=== PATIENT | female | born 1975 | race Caucasian/White ===

== ENCOUNTER 2018-03-29 07:55 | Day surgery (SDC) | payer MEDICAID ==
[2018-03-26 11:49] LABS: BASOPHILS % (AUTO) 0.6 % (0-1); EOSINOPHILS # (AUTO) 0.3 X10'3 (0-0.9); EOSINOPHILS % (AUTO) 4.8 % (0-6); LYMPHOCYTES # (AUTO) 1.2 X10'3 (1.1-4.8); LYMPHOCYTES % (AUTO) 17.4 % (21-51); MEAN CORPUSCULAR HEMOGLOBIN 24.9 PG (27.0-31.0); MEAN CORPUSCULAR HGB CONC 32.5 % (33.0-36.5); MEAN CORPUSCULAR VOLUME 76.7 FL (78-98); MEAN PLATELET VOLUME 7.7 FL (7.4-10.4); MONOCYTES # (AUTO) 0.5 X10'3 (0-0.9); MONOCYTES % (AUTO) 7.8 % (2-12); NEUTROPHILS # (AUTO) 4.9 X10'3 (1.8-7.7); NEUTROPHILS % (AUTO) 69.4 % (42-75); PRE OP HEMATOCRIT 34.4 % (35.0-45.0); PRE OP HEMOGLOBIN 11.2 g/dL (12.0-16.0); PRE OP PLATELET COUNT 357 X10'3 (140-440); RED BLOOD COUNT 4.48 X10'6 (4.20-5.60); RED CELL DISTRIBUTION WIDTH 17.3 % (11.5-14.5)
[2018-03-26 12:03] LABS: ALBUMIN 3.2 G/DL (3.4-5.0); ALBUMIN/GLOBULIN RATIO 0.8 (1.1-1.5); ALKALINE PHOSPHATASE 76 IU/L (46-116); BLOOD UREA NITROGEN 9 MG/DL (7-18); CALCIUM 8.8 MG/DL (8.5-10.1); CHLORIDE 103 MMOL/L (99-107); PRE OP ALT 30 U/L (30-65); PRE OP ANION GAP 6 (8-16); PRE OP AST 15 U/L (10-37); PRE OP BILIRUB, TOTAL 0.3 MG/DL (0.0-1.0); PRE OP GLUCOSE 88 MG/DL (70-104); PRE OP POTASSIUM 3.6 MMOL/L (3.4-5.1); PRE OP SODIUM 138 MMOL/L (135-145); TOTAL CARBON DIOXIDE 28.7 MMOL/L (24-32); TOTAL PROTEIN 7.2 G/DL (6.4-8.2); eGFR > 90 ML/MIN
[2018-03-26 12:18] LABS: HCG SERUM QL NEGATIVE
[2018-03-29] VITALS (9 sets, daily range): BP systolic 138–150; BP diastolic 72–94
[~2018-03-29] VITALS: Ht 177.8 cm; Wt 72.4 kg
[~2018-03-29 07:55] MED LIST: TRAM50TA2 PO; famotidine 20mg tablet PO ONE; ringers solution, lacted 1,000 ML IV SCH
[2018-03-29] MEDS ORDERED: LIDOcaine 1% (10mg/ml) 2ml vial ONE (08:25)
[2018-03-29] MEDS ORDERED: sevoflurane 250ml liquid IH ONE (10:02)
[2018-03-29] MEDS ORDERED: fentaNYL/PF 50MCG/1 ML 2ML syringe ONE (10:05)
[2018-03-29] MEDS ORDERED: midazolam 2 mg/2 ml injection ONE (10:07)
[2018-03-29] MEDS ORDERED: propofol inj 20 ML IV ONE (10:08)
[2018-03-29] MEDS ORDERED: rocuronium 10mg/ml inj IV ONE (10:08)
[2018-03-29] MEDS ORDERED: dexamethasone sod phosphate 4mg/ml inj. ONE (10:19)
[2018-03-29] MEDS ORDERED: ondansetron/PF 4mg/2ml inj ONE (10:24)
[2018-03-29] MEDS ORDERED: neostigmine methylsulfate 1 MG/ML 10ml vial ONE (10:42)
[2018-03-29] MEDS ORDERED: glycopyrrolate 0.2mg/ml inj ONE (10:42)
[2018-03-29] MEDS ORDERED: ringers solution, lacted 1,000 ML IV SCH (11:00)
[2018-03-29] MEDS ORDERED: ondansetron/PF 4mg/2ml inj IV PRN (11:00)
[2018-03-29] MEDS ORDERED: morphine 4 MG/ML inj SYRINge IV PRN ×2 (11:00)
[2018-03-29] MEDS ORDERED: meperidine/PF 25mg/ml syringe IV PRN ×3 (11:00)
[2018-03-29] MEDS ORDERED: proCHLORperazine 10 MG/2 ml inj IV PRN (11:00)
== END 2018-03-29 12:10 | disposition home or self-care (01) ==
LOC: PAS 07:55
PROVIDERS: ATTEND Obstetrics & Gynecology
DX: Z30.2 Encounter for sterilization (principal); M19.90 Unspecified osteoarthritis, unspecified site; F32.9 Major depressive disorder, single episode, unspecified; F17.210 Nicotine dependence, cigarettes, uncomplicated; Z79.891 Long term (current) use of opiate analgesic; Z90.49 Acquired absence of other specified parts of digestive tract; Z72.89 Other problems related to lifestyle
CPT/HCPCS: 36415; 58670; 80053; 84703; 85025; J1100; J2250; J2405; J2704; J2710; J3010; J3490; J7120; A7000